=== PATIENT | male | born 1950 | race Caucasian/White ===

== ENCOUNTER → 2016-04-12 | Outpatient (CLI) | payer BC ==
[~2016-04-12] MED LIST: ATORVASTATIN CA20 M1 PO; CELECOXIB200 M1 PO; FLUTICASON0.05 MG/AC NAS; HUMALOG100 UNIT/1 SQ; JANUMET 1000 MG1 TA1 PO; JARDIANCE10 MG PO; PANTOPRAZOLE SO40 MG PO; PREDNISONE10 MG PO
[2016-04-13 08:10] LABS: PROSTATE SPECIFIC AG FREE 0.6 ng/mL
== END | disposition home or self-care (01) ==
LOC: LAB 07:02
PROVIDERS: Urology
DX: R97.20 Elevated prostate specific antigen [PSA] (principal)

== ENCOUNTER → 2016-07-08 | Day surgery (SDC) | payer BC ==
[~2016-07-08] MED LIST changes: +ASPIRIN CHEWABL81 MG PO; +HUMULIN N KW100 U/ML SC; +LEVEMIR FLEX100 U/ML SC; +LIPITOR20 MG PO
--- NOTE | ~2016-07-08 | PROC NOTE ---
[place], [place] PROCEDURE NOTE [id number] UNIT #: [id number] ROOM: DOCTOR: ALBERT ANGELO MD BIRTHDATE: [birth year] DOS: 07/08/2016 PREOPERATIVE DIAGNOSIS: Occipital scalp cyst. POSTOPERATIVE DIAGNOSIS: Occipital scalp cyst. PROCEDURE: Excision of occipital scalp cyst. SURGEON: Albert Angelo MD. STEEPING PRESS TENDER: CARLOS. ANESTHESIA: Local. INDICATIONS: This is a 66-year-old gentleman with a history of symptomatic cyst on the occipital region of his scalp, who is here for the above-mentioned procedure. The procedure and its complications were explained to the patient in detail. Complications that were discussed included but were not limited to, bleeding, infection, and prolonged pain. He agreed to proceed. DESCRIPTION OF PROCEDURE: After identifying the patient, the patient was brought to the operating suite and laid in the right lateral position. After the scalp was shaved around the cyst, it was prepped and draped in the usual sterile fashion and a time-out procedure was called. An elliptical incision was marked and local anesthesia was infiltrated. The mass was removed in its entirety and sent for histopathological diagnosis with the help of a knife. Hemostasis was achieved with the help of electrocautery and the edges of the skin were then approximated with the help of 3-0 Vicryl in a subcuticular interrupted fashion. Dressing was placed. The patient tolerated the procedure well. There were no complications. Dr. Albert Angelo, the attending surgeon, was present throughout the operating case. Albert Angelo MD CM:PROCNOTE:PROCEDURE NOTE [id number] ALBERT ANGEOL MD
[2016-07-08 08:30] VITALS: BP 143/72
[2016-07-08 09:30] VITALS: BP 137/74
== END | disposition home or self-care (01) ==
LOC: SDC 07-05 12:30
DX: L72.0 Epidermal cyst (principal); E11.9 Type 2 diabetes mellitus without complications; E78.00 Pure hypercholesterolemia, unspecified; Z87.891 Personal history of nicotine dependence; Z82.49 Family history of ischemic heart disease and other diseases of the circulatory system

== ENCOUNTER → 2016-07-11 | Outpatient (CLI) | payer BC ==
[2016-07-11 08:04] LABS: HEMOGLOBIN A1c 8.4 % (4.8-5.6)
== END | disposition home or self-care (01) ==
LOC: LAB 07:09
DX: E10.9 Type 1 diabetes mellitus without complications (principal)

== ENCOUNTER → 2016-10-21 | Outpatient (CLI) | payer BC | END | disposition home or self-care (01) | LOC: CARD 10:30 | DX: I08.1 Rheumatic disorders of both mitral and tricuspid valves (principal) ==

== ENCOUNTER → 2016-12-06 | Outpatient (CLI) | payer BC | END | disposition home or self-care (01) | LOC: LAB 07:06 | DX: R97.20 Elevated prostate specific antigen [PSA] (principal) ==

== ENCOUNTER → 2016-12-20 | Outpatient (CLI) | payer BC ==
[2016-12-20 08:24] LABS: ALBUMIN 3.7 gm/dl (3.1-4.5); ALKALINE PHOSPHATASE 59 U/L (45-117); BUN 8 mg/dl (7-24); CHLORIDE 101 mmol/L (98-107); CHOLESTEROL 173 mg/dL (<200); CREATININE 0.74 mg/dL (0.70-1.30); HDL CHOLESTEROL 89 mg/dl (40-60); LDL CHOLESTEROL 65 mg/dL (9-159); POTASSIUM 4.8 mmol/L (3.5-5.1); SGOT/AST 18 IU/L (3-35); SGPT/ALT 20 U/L (12-78); SODIUM 140 mmol/L (136-145); TOTAL PROTEIN 7.1 gm/dL (6.4-8.2); TRIGLYCERIDES 95 mg/dl (<150); VLDL CHOLESTEROL 19 mg/dL (6-40)
== END | disposition home or self-care (01) ==
LOC: LAB 07:08
PROVIDERS: Physician Assistant Medical
DX: E11.65 Type 2 diabetes mellitus with hyperglycemia (principal); E78.00 Pure hypercholesterolemia, unspecified; I10 Essential (primary) hypertension

== ENCOUNTER → 2017-02-12 | Outpatient (CLI) | payer BC | LOC: RAD 08:51 | DX: M47.892 Other spondylosis, cervical region (principal); M48.02 Spinal stenosis, cervical region ==

== ENCOUNTER → 2017-04-30 | Outpatient (CLI) | payer BC ==
[2017-04-30 08:03] LABS: CHLORIDE 105 mmol/L (98-107); SODIUM 142 mmol/L (136-145)
[2017-04-30 08:11] LABS: ALBUMIN 4.2 gm/dl (3.1-4.5); ALKALINE PHOSPHATASE 62 U/L (45-117); BUN 11 mg/dl (7-24); CREATININE 0.93 mg/dL (0.70-1.30); SGOT/AST 16 IU/L (3-35); SGPT/ALT 21 U/L (12-78); TOTAL PROTEIN 7.3 gm/dL (6.4-8.2)
== END ==
LOC: LAB 07:21
PROVIDERS: Physician Assistant Medical
DX: R10.9 Unspecified abdominal pain (principal)

== ENCOUNTER → 2017-06-03 | Outpatient (CLI) | payer BC | END | disposition home or self-care (01) | LOC: LAB 07:05 | DX: R97.20 Elevated prostate specific antigen [PSA] (principal) ==

== ENCOUNTER 2017-08-13 07:20 | Emergency (ER) | payer BC, MEDICARE ==
[~2017-08-13] VITALS: Ht 185.4 cm; Wt 81.6 kg
[2017-08-13 07:20] VITALS: BP 118/70
[~2017-08-13 07:20] MED LIST changes: -HUMULIN N KW100 U/ML SC; +HUMULIN N100 UNIT/2 SQ
[2017-08-13] MEDS ORDERED: PREDNISONE50 MG PO (07:46)
== END 2017-08-13 07:50 | disposition home or self-care (01) ==
LOC: ED 07:20
DX: L23.7 Allergic contact dermatitis due to plants, except food (principal); Z79.4 Long term (current) use of insulin; Z79.82 Long term (current) use of aspirin

== ENCOUNTER → 2017-10-20 | Outpatient (CLI) | payer BC ==
[~2017-10-20] MED LIST changes: +PREDNISONE50 MG PO
== END | disposition home or self-care (01) ==
LOC: LAB 07:15
DX: E11.9 Type 2 diabetes mellitus without complications (principal)

== ENCOUNTER → 2017-10-21 | Outpatient (CLI) | payer BC ==
--- NOTE | ~2017-10-21 | EKG ---
[place], [place] ELECTROCARDIOGRAM REPORT NAME: YOUSIF LOVELACE UNIT #: [id number] ROOM: DOCTOR: OTILIA DRAFT REPORT BIRTHDATE: [birth year] [facility] Test Date: 2017-10-21 Test Time: 08:18:11 Pat Name: YOUSIF LOVELACE Department: Room: Gender: Apartment Leasing Agent: : [id number] Requested By: JULIAN SANFORD Order Number: [id number] Reading MD: Red Bland MD Measurements Intervals Gates Rate: 64 P: 56 AL: 189 QRS: 71 QRSD: 100 T: 49 QT: 423 QTc: 437 Interpretive Statements Sinus rhythm Electronically Signed On 10-21-2017 20:36:07 PDT by Red Bland MD CM:EKGRPT:ELECTROCARDIOGRAM REPORT 7 35 JULIAN BINGHAM DRAFT REPORT JULIAN SANFORD
== END | disposition home or self-care (01) ==
LOC: CARD 07:55
DX: R06.02 Shortness of breath (principal); R07.9 Chest pain, unspecified

== ENCOUNTER → 2018-02-19 | Outpatient (CLI) | payer BC ==
[2018-02-19 08:19] LABS: ALBUMIN 4.2 gm/dl (3.1-4.5); ALKALINE PHOSPHATASE 63 U/L (45-117); BUN 12 mg/dl (7-24); CHLORIDE 103 mmol/L (98-107); CHOLESTEROL 173 mg/dL (<200); CREATININE 0.89 mg/dL (0.70-1.30); HDL CHOLESTEROL 86 mg/dl (40-60); LDL CHOLESTEROL 66 mg/dL (9-159); POTASSIUM 4.3 mmol/L (3.5-5.1); SGOT/AST 23 IU/L (3-35); SGPT/ALT 24 U/L (12-78); SODIUM 139 mmol/L (136-145); TOTAL PROTEIN 7.5 gm/dL (6.4-8.2); TRIGLYCERIDES 104 mg/dl (<150); VLDL CHOLESTEROL 21 mg/dL (6-40)
== END | disposition home or self-care (01) ==
LOC: LAB 07:26
PROVIDERS: Physician Assistant Medical
DX: I10 Essential (primary) hypertension (principal); E10.9 Type 1 diabetes mellitus without complications; E78.00 Pure hypercholesterolemia, unspecified

== ENCOUNTER → 2018-05-22 | Outpatient (CLI) | payer BC | END | disposition home or self-care (01) | LOC: LAB 14:19 | DX: R97.20 Elevated prostate specific antigen [PSA] (principal) ==

== ENCOUNTER → 2018-05-29 | Outpatient (CLI) | payer BC ==
[2018-05-29 07:37] LABS: HEMOGLOBIN 14.7 g/dl (14.0-18.0); MEAN CELL VOLUME 91.9 fl (80.0-94.0); MEAN CORPUSCULAR HGB 31.4 pg (27.0-31.0); MEAN CORPUSCULAR HGB CONC 34.2 g/dl (33.0-37.0); RED BLOOD COUNT 4.68 10*6/uL (4.50-5.90); RED CELL DISTRI WIDTH 13.1 % (0-14.5); WHITE BLOOD COUNT 4.6 10*3/uL (4.8-10.8)
[2018-05-29 08:23] LABS: ALBUMIN 3.7 gm/dl (3.1-4.5); BUN 11 mg/dl (7-24); CHLORIDE 103 mmol/L (98-107); POTASSIUM 5.2 mmol/L (3.5-5.1); SODIUM 139 mmol/L (136-145)
[2018-05-29 08:34] LABS: ALKALINE PHOSPHATASE 72 U/L (45-117); CHOLESTEROL 169 mg/dL (<200); CPK 78 U/L (39-308); CREATININE 0.81 mg/dL (0.70-1.30); HDL CHOLESTEROL 84 mg/dl (40-60); LDL CHOLESTEROL 68 mg/dL (9-159); SGOT/AST 15 IU/L (3-35); SGPT/ALT 21 U/L (12-78); TOTAL PROTEIN 7.1 gm/dL (6.4-8.2); TRIGLYCERIDES 87 mg/dl (<150); VLDL CHOLESTEROL 17 mg/dL (6-40)
== END | disposition home or self-care (01) ==
LOC: LAB 07:06
PROVIDERS: Family Medicine
DX: E55.9 Vitamin D deficiency, unspecified (principal); K21.9 Gastro-esophageal reflux disease without esophagitis; E11.9 Type 2 diabetes mellitus without complications; E78.00 Pure hypercholesterolemia, unspecified; R53.83 Other fatigue

== ENCOUNTER → 2018-11-11 | Outpatient (CLI) | payer BC ==
[2018-11-11 08:07] LABS: ALBUMIN 3.6 gm/dl (3.1-4.5); BUN 6 mg/dl (7-24); CHLORIDE 106 mmol/L (98-107); CHOLESTEROL 183 mg/dL (<200); CREATININE 0.75 mg/dL (0.70-1.30); POTASSIUM 3.6 mmol/L (3.5-5.1); SGOT/AST 17 IU/L (3-35); SGPT/ALT 20 U/L (12-78); SODIUM 142 mmol/L (136-145); TRIGLYCERIDES 157 mg/dl (<150); VLDL CHOLESTEROL 31 mg/dL (6-40)
[2018-11-11 08:10] LABS: ALKALINE PHOSPHATASE 77 U/L (45-117); HDL CHOLESTEROL 89 mg/dl (40-60); LDL CHOLESTEROL 63 mg/dL (9-159); TOTAL PROTEIN 6.7 gm/dL (6.4-8.2)
== END | disposition home or self-care (01) ==
LOC: LAB 07:03
PROVIDERS: Physician Assistant Medical
DX: E78.00 Pure hypercholesterolemia, unspecified (principal); E10.65 Type 1 diabetes mellitus with hyperglycemia

== ENCOUNTER → 2019-01-25 | Outpatient (CLI) | payer BC ==
[2019-01-25 07:50] LABS: BUN 14 mg/dl (7-24); CHLORIDE 106 mmol/L (98-107); CREATININE 0.92 mg/dL (0.70-1.30); POTASSIUM 4.3 mmol/L (3.5-5.1); SGOT/AST 20 IU/L (3-35); SGPT/ALT 24 U/L (12-78); SODIUM 140 mmol/L (136-145)
[2019-01-25 08:00] LABS: ALBUMIN 3.8 gm/dl (3.1-4.5); ALKALINE PHOSPHATASE 85 U/L (45-117)
== END | disposition home or self-care (01) ==
LOC: LAB 07:13
PROVIDERS: Physician Assistant Medical
DX: E78.5 Hyperlipidemia, unspecified (principal); I10 Essential (primary) hypertension; E10.9 Type 1 diabetes mellitus without complications; Z79.4 Long term (current) use of insulin

== ENCOUNTER → 2019-05-06 | Outpatient (CLI) | payer BC ==
[2019-05-06 09:01] LABS: ALBUMIN 3.8 gm/dl (3.1-4.5); ALKALINE PHOSPHATASE 79 U/L (45-117); BUN 8 mg/dl (7-24); CHLORIDE 105 mmol/L (98-107); CHOLESTEROL 202 mg/dL (<200); CREATININE 0.93 mg/dL (0.70-1.30); HDL CHOLESTEROL 79 mg/dl (40-60); LDL CHOLESTEROL 91 mg/dL (9-159); POTASSIUM 4.4 mmol/L (3.5-5.1); SGOT/AST 14 IU/L (3-35); SGPT/ALT 22 U/L (12-78); SODIUM 141 mmol/L (136-145); TOTAL PROTEIN 6.9 gm/dL (6.4-8.2); TRIGLYCERIDES 158 mg/dl (<150); VLDL CHOLESTEROL 32 mg/dL (6-40)
== END ==
LOC: LAB 08:01
PROVIDERS: Physician Assistant Medical
DX: I10 Essential (primary) hypertension (principal); E10.9 Type 1 diabetes mellitus without complications; E78.5 Hyperlipidemia, unspecified; Z79.4 Long term (current) use of insulin

== ENCOUNTER → 2019-08-27 | Outpatient (CLI) | payer BC ==
[~2019-08-27] MED LIST changes: +PREDNISONE20 M1 PO; +VISTARIL25 MG PO
[2019-08-27 10:08] LABS: ALBUMIN 3.8 gm/dl (3.1-4.5); ALKALINE PHOSPHATASE 76 U/L (45-117); BUN 9 mg/dl (7-24); CHLORIDE 105 mmol/L (98-107); CHOLESTEROL 206 mg/dL (<200); CREATININE 0.86 mg/dL (0.70-1.30); HDL CHOLESTEROL 73 mg/dl (40-60); LDL CHOLESTEROL 101 mg/dL (9-159); POTASSIUM 4.2 mmol/L (3.5-5.1); SGOT/AST 18 IU/L (3-35); SGPT/ALT 30 U/L (12-78); SODIUM 137 mmol/L (136-145); TOTAL PROTEIN 7.2 gm/dL (6.4-8.2); TRIGLYCERIDES 161 mg/dl (<150); VLDL CHOLESTEROL 32 mg/dL (6-40)
== END | disposition home or self-care (01) ==
LOC: LAB 09:10
PROVIDERS: Physician Assistant Medical
DX: Z12.5 Encounter for screening for malignant neoplasm of prostate (principal); I10 Essential (primary) hypertension; E78.5 Hyperlipidemia, unspecified; E10.9 Type 1 diabetes mellitus without complications; Z79.4 Long term (current) use of insulin

== ENCOUNTER 2019-09-03 19:36 | Emergency (ER) | payer BC ==
[~2019-09-03 19:36] MED LIST changes: -PREDNISONE20 M1 PO; -VISTARIL25 MG PO
[2019-09-03 19:50] VITALS: BP 112/63
[2019-09-03] MEDS ORDERED: VISTARIL25 MG PO (20:48)
[2019-09-03] MEDS ORDERED: PREDNISONE20 M1 PO (20:48)
== END 2019-09-03 21:00 | disposition home or self-care (01) ==
LOC: ED 19:36
DX: L25.9 Unspecified contact dermatitis, unspecified cause (principal); E78.00 Pure hypercholesterolemia, unspecified; E78.5 Hyperlipidemia, unspecified; E11.9 Type 2 diabetes mellitus without complications; Z79.899 Other long term (current) drug therapy; Z79.4 Long term (current) use of insulin; Z79.82 Long term (current) use of aspirin

== ENCOUNTER → 2019-09-14 | Outpatient (CLI) | payer BC ==
[~2019-09-14] MED LIST changes: +PREDNISONE20 M1 PO; +VISTARIL25 MG PO
[2019-09-15 17:09] LABS: PROSTATE SPECIFIC AG FREE 0.65 ng/mL; PROSTATE SPECIFIC AG, SERUM 4.9 ng/mL (0.0-4.0)
== END | disposition home or self-care (01) ==
LOC: LAB 09:59
PROVIDERS: Urology
DX: R97.20 Elevated prostate specific antigen [PSA] (principal)

== ENCOUNTER → 2019-10-21 | Outpatient (CLI) | payer MEDICARE, BC | END | disposition home or self-care (01) | LOC: COVID19 07:22 | DX: U07.1 COVID-19 (principal) ==

== ENCOUNTER → 2019-12-03 | Outpatient (CLI) | payer MEDICARE | END | disposition home or self-care (01) | LOC: RAD 07:46 | PROVIDERS: ATTEND Family Medicine | DX: K21.9 Gastro-esophageal reflux disease without esophagitis (principal); R07.9 Chest pain, unspecified ==

== ENCOUNTER → 2019-12-15 | Outpatient (CLI) | payer MEDICARE ==
[2019-12-15 10:00] LABS: ALBUMIN 3.7 gm/dl (3.1-4.5); BUN 10 mg/dl (7-24); CHLORIDE 105 mmol/L (98-107); POTASSIUM 4.3 mmol/L (3.5-5.1); SODIUM 139 mmol/L (136-145)
[2019-12-15 10:04] LABS: ALKALINE PHOSPHATASE 76 U/L (45-117); CHOLESTEROL 198 mg/dL (<200); CREATININE 0.83 mg/dL (0.70-1.30); HDL CHOLESTEROL 80 mg/dl (40-60); LDL CHOLESTEROL 80 mg/dL (9-159); SGOT/AST 14 IU/L (3-35); SGPT/ALT 25 U/L (12-78); TRIGLYCERIDES 190 mg/dl (<150); VLDL CHOLESTEROL 38 mg/dL (6-40)
== END | disposition home or self-care (01) ==
LOC: LAB 09:01
PROVIDERS: ATTEND Physician Assistant Medical
DX: E10.9 Type 1 diabetes mellitus without complications (principal); E78.5 Hyperlipidemia, unspecified; Z79.4 Long term (current) use of insulin

== ENCOUNTER → 2020-02-02 | Outpatient (CLI) | payer MEDICARE | END | disposition home or self-care (01) | LOC: LAB 11:02 | PROVIDERS: ATTEND Urology | DX: R97.20 Elevated prostate specific antigen [PSA] (principal) ==

== ENCOUNTER → 2020-03-29 | Outpatient (CLI) | payer MEDICARE | END | disposition home or self-care (01) | LOC: COVID19 10:22 | PROVIDERS: ATTEND Social Worker Clinical | DX: Z20.822 Contact with and (suspected) exposure to COVID-19 (principal) ==

== ENCOUNTER → 2020-04-08 | Outpatient (CLI) | payer MEDICARE ==
[2020-04-08 09:25] LABS: ALBUMIN 3.8 gm/dl (3.1-4.5); ALKALINE PHOSPHATASE 81 U/L (45-117); BUN 7 mg/dl (7-24); CHLORIDE 104 mmol/L (98-107); CHOLESTEROL 169 mg/dL (<200); CREATININE 0.81 mg/dL (0.70-1.30); HDL CHOLESTEROL 81 mg/dl (40-60); LDL CHOLESTEROL 67 mg/dL (9-159); POTASSIUM 4.4 mmol/L (3.5-5.1); SGOT/AST 18 IU/L (3-35); SGPT/ALT 25 U/L (12-78); SODIUM 138 mmol/L (136-145); TOTAL PROTEIN 7.2 gm/dL (6.4-8.2); TRIGLYCERIDES 104 mg/dl (<150); VLDL CHOLESTEROL 21 mg/dL (6-40)
== END | disposition home or self-care (01) ==
LOC: LAB 08:20
PROVIDERS: ATTEND Physician Assistant Medical
DX: I10 Essential (primary) hypertension (principal); E78.5 Hyperlipidemia, unspecified; E10.9 Type 1 diabetes mellitus without complications; Z79.4 Long term (current) use of insulin

== ENCOUNTER → 2020-05-05 | Outpatient (CLI) | payer MEDICARE | END | disposition home or self-care (01) | LOC: LAB 10:39 | PROVIDERS: ATTEND Urology | DX: R97.20 Elevated prostate specific antigen [PSA] (principal) ==

== ENCOUNTER → 2020-05-29 | Outpatient (CLI) | payer MEDICARE ==
[2020-05-29 10:13] LABS: ALBUMIN 3.7 gm/dl (3.1-4.5); BUN 9 mg/dl (7-24); CHLORIDE 106 mmol/L (98-107); CREATININE 0.92 mg/dL (0.70-1.30); POTASSIUM 5.3 mmol/L (3.5-5.1); SGOT/AST 15 IU/L (3-35); SGPT/ALT 23 U/L (12-78); SODIUM 141 mmol/L (136-145); TOTAL PROTEIN 7.3 gm/dL (6.4-8.2)
[2020-05-29 10:14] LABS: ALKALINE PHOSPHATASE 74 U/L (45-117)
== END | disposition home or self-care (01) ==
LOC: LAB 08:52
PROVIDERS: ATTEND Orthopaedic Surgery
DX: Z79.899 Other long term (current) drug therapy (principal)

== ENCOUNTER → 2020-07-25 | Outpatient (CLI) | payer MEDICARE ==
[2020-07-25 10:09] LABS: ALBUMIN 3.8 gm/dl (3.1-4.5); ALKALINE PHOSPHATASE 68 U/L (45-117); BUN 10 mg/dl (7-24); CHLORIDE 105 mmol/L (98-107); CHOLESTEROL 159 mg/dL (<200); CREATININE 0.93 mg/dL (0.70-1.30); LDL CHOLESTEROL 60 mg/dL (9-159); POTASSIUM 4.4 mmol/L (3.5-5.1); SGOT/AST 16 IU/L (3-35); SGPT/ALT 24 U/L (12-78); SODIUM 139 mmol/L (136-145); TOTAL PROTEIN 6.9 gm/dL (6.4-8.2); TRIGLYCERIDES 121 mg/dl (<150)
== END | disposition home or self-care (01) ==
LOC: LAB 09:23
PROVIDERS: ATTEND Physician Assistant Medical
DX: E10.9 Type 1 diabetes mellitus without complications (principal); E78.5 Hyperlipidemia, unspecified; I10 Essential (primary) hypertension; Z79.4 Long term (current) use of insulin

== ENCOUNTER → 2020-07-31 | Outpatient (CLI) | payer MEDICARE | END | disposition home or self-care (01) | LOC: RAD 11:28 | PROVIDERS: ATTEND Family Medicine | DX: R06.02 Shortness of breath (principal) ==

== ENCOUNTER → 2020-08-08 | Outpatient (CLI) | payer MEDICARE | END | disposition home or self-care (01) | LOC: LAB 11:35 | PROVIDERS: ATTEND Urology | DX: R97.20 Elevated prostate specific antigen [PSA] (principal) ==

== ENCOUNTER → 2020-08-10 | Outpatient (CLI) | payer MEDICARE | END | disposition home or self-care (01) | LOC: CT 00:10 | PROVIDERS: ATTEND Family Medicine | DX: R91.1 Solitary pulmonary nodule (principal) ==

== ENCOUNTER 2020-10-17 12:35 | Emergency (ER) | payer MEDICARE ==
[~2020-10-17] VITALS: Ht 185.4 cm; Wt 88.5 kg
[2020-10-17 12:43] VITALS: BP 127/63
[2020-10-17] MEDS ORDERED: NYSTATIN15 GM T (13:09)
== END 2020-10-17 13:12 | disposition home or self-care (01) ==
LOC: ED 12:35
DX: L30.9 Dermatitis, unspecified (principal); Z79.899 Other long term (current) drug therapy; Z79.4 Long term (current) use of insulin; Z79.82 Long term (current) use of aspirin; Z98.890 Other specified postprocedural states

== ENCOUNTER → 2020-10-30 | Outpatient (CLI) | payer MEDICARE ==
[~2020-10-30] MED LIST changes: +NYSTATIN15 GM T
[2020-10-30 10:48] LABS: ALBUMIN 3.9 gm/dl (3.1-4.5); ALKALINE PHOSPHATASE 59 U/L (45-117); BUN 13 mg/dl (7-24); CHLORIDE 104 mmol/L (98-107); CREATININE 0.79 mg/dL (0.70-1.30); POTASSIUM 4.4 mmol/L (3.5-5.1); SGOT/AST 13 IU/L (3-35); SGPT/ALT 23 U/L (12-78); SODIUM 137 mmol/L (136-145); TOTAL PROTEIN 7.2 gm/dL (6.4-8.2)
== END | disposition home or self-care (01) ==
LOC: LAB 10:01
PROVIDERS: ATTEND Orthopaedic Surgery
DX: Z79.01 Long term (current) use of anticoagulants (principal)

== ENCOUNTER → 2020-11-28 | Outpatient (CLI) | payer MEDICARE ==
[2020-11-28 11:09] LABS: ALBUMIN 3.9 gm/dl (3.1-4.5); ALKALINE PHOSPHATASE 62 U/L (45-117); BUN 12 mg/dl (7-24); CHLORIDE 105 mmol/L (98-107); CHOLESTEROL 207 mg/dL (<200); CREATININE 0.83 mg/dL (0.70-1.30); LDL CHOLESTEROL 112 mg/dL (9-159); POTASSIUM 4.7 mmol/L (3.5-5.1); SGOT/AST 21 IU/L (3-35); SGPT/ALT 40 U/L (12-78); SODIUM 140 mmol/L (136-145); TOTAL PROTEIN 7.5 gm/dL (6.4-8.2); TRIGLYCERIDES 131 mg/dl (<150)
== END | disposition home or self-care (01) ==
LOC: LAB 10:28
PROVIDERS: ATTEND Physician Assistant Medical
DX: I10 Essential (primary) hypertension (principal); E16.2 Hypoglycemia, unspecified; E55.9 Vitamin D deficiency, unspecified; E78.5 Hyperlipidemia, unspecified; Z79.4 Long term (current) use of insulin

== ENCOUNTER → 2021-01-23 | Outpatient (CLI) | payer MEDICARE | END | disposition home or self-care (01) | LOC: LAB 09:18 | PROVIDERS: ATTEND Urology | DX: R97.20 Elevated prostate specific antigen [PSA] (principal) ==

== ENCOUNTER → 2021-04-04 | Outpatient (CLI) | payer MEDICARE ==
[2021-04-04 08:56] LABS: ALBUMIN 3.9 gm/dl (3.1-4.5); ALKALINE PHOSPHATASE 56 U/L (45-117); BUN 16 mg/dl (7-24); CHLORIDE 104 mmol/L (98-107); CHOLESTEROL 194 mg/dL (<200); CREATININE 1.21 mg/dL (0.70-1.30); LDL CHOLESTEROL 81 mg/dL (9-159); POTASSIUM 4.5 mmol/L (3.5-5.1); SGOT/AST 21 IU/L (3-35); SGPT/ALT 35 U/L (12-78); SODIUM 138 mmol/L (136-145); TOTAL PROTEIN 7.1 gm/dL (6.4-8.2); TRIGLYCERIDES 106 mg/dl (<150)
== END | disposition home or self-care (01) ==
LOC: LAB 07:56
PROVIDERS: ATTEND Physician Assistant Medical
DX: E10.9 Type 1 diabetes mellitus without complications (principal); E78.5 Hyperlipidemia, unspecified; I10 Essential (primary) hypertension; Z79.4 Long term (current) use of insulin

== ENCOUNTER → 2021-06-29 | Outpatient (CLI) | payer MEDICARE ==
[2021-06-29 09:56] LABS: ALKALINE PHOSPHATASE 64 U/L (45-117); BUN 11 mg/dl (7-24); CHLORIDE 97 mmol/L (98-107); CREATININE 0.83 mg/dL (0.70-1.30); POTASSIUM 4.4 mmol/L (3.5-5.1); SGOT/AST 18 IU/L (3-35); SGPT/ALT 25 U/L (12-78); SODIUM 133 mmol/L (136-145); TOTAL PROTEIN 6.8 gm/dL (6.4-8.2)
== END | disposition home or self-care (01) ==
LOC: LAB 08:56
PROVIDERS: ATTEND Orthopaedic Surgery
DX: R53.83 Other fatigue (principal); Z79.1 Long term (current) use of non-steroidal anti-inflammatories (NSAID)

== ENCOUNTER → 2021-08-03 | Outpatient (CLI) | payer MEDICARE ==
[2021-08-03 10:14] LABS: ALKALINE PHOSPHATASE 78 U/L (45-117); BUN 8 mg/dl (7-24); CHLORIDE 103 mmol/L (98-107); CHOLESTEROL 139 mg/dL (<200); LDL CHOLESTEROL 57 mg/dL (9-159); POTASSIUM 4.9 mmol/L (3.5-5.1); SGOT/AST 19 IU/L (3-35); SGPT/ALT 22 U/L (12-78); SODIUM 137 mmol/L (136-145); TOTAL PROTEIN 6.8 gm/dL (6.4-8.2); TRIGLYCERIDES 92 mg/dl (<150)
== END | disposition home or self-care (01) ==
LOC: LAB 09:08
PROVIDERS: Physician Assistant Medical; ATTEND Urology
DX: I10 Essential (primary) hypertension (principal); E16.2 Hypoglycemia, unspecified; R97.20 Elevated prostate specific antigen [PSA]; E10.9 Type 1 diabetes mellitus without complications; E78.5 Hyperlipidemia, unspecified

== ENCOUNTER → 2021-12-21 | Outpatient (CLI) | payer MEDICARE ==
[2021-12-21 10:11] LABS: BUN 10 mg/dl (7-24); CHLORIDE 106 mmol/L (98-107); CHOLESTEROL 186 mg/dL (<200); CREATININE 0.85 mg/dL (0.70-1.30); POTASSIUM 4.9 mmol/L (3.5-5.1); SGOT/AST 20 IU/L (3-35); SODIUM 141 mmol/L (136-145); TRIGLYCERIDES 102 mg/dl (<150)
[2021-12-21 10:17] LABS: ALKALINE PHOSPHATASE 62 U/L (45-117); LDL CHOLESTEROL 72 mg/dL (9-159); SGPT/ALT 26 U/L (12-78); TOTAL PROTEIN 7.2 gm/dL (6.4-8.2)
[2021-12-22 10:07] LABS: CREATININE,URINE 110.9 mg/dL (Not Estab.)
== END | disposition home or self-care (01) ==
LOC: LAB 09:16
PROVIDERS: ATTEND Physician Assistant Medical
DX: E10.9 Type 1 diabetes mellitus without complications (principal); E78.5 Hyperlipidemia, unspecified; I10 Essential (primary) hypertension; Z79.4 Long term (current) use of insulin; E16.2 Hypoglycemia, unspecified

== ENCOUNTER 2022-01-30 17:36 | Emergency (ER) | payer MEDICARE ==
[2022-01-30] MEDS ORDERED: TOUJEO MAX300 UNIT/1 SQ (21:23)
== END 2022-01-30 18:31 | disposition left against medical advice (07) ==
LOC: ED 17:36
DX: Z53.21 Procedure and treatment not carried out due to patient leaving prior to being seen by health care provider (principal)

== ENCOUNTER 2022-01-30 20:55 | Emergency (ER) | payer MEDICARE ==
[~2022-01-30] VITALS: Ht 185.4 cm; Wt 81.6 kg
[2022-01-30 21:22] VITALS: BP 121/72
[2022-01-30] MEDS ORDERED: TOUJEO MAX300 UNIT/1 SQ (21:23)
== END 2022-01-30 22:09 | disposition home or self-care (01) ==
LOC: ED 20:55
DX: S61.213A Laceration without foreign body of left middle finger without damage to nail, initial encounter (principal); W45.8XXA Other foreign body or object entering through skin, initial encounter; Y93.89 Activity, other specified; Y92.89 Other specified places as the place of occurrence of the external cause; Y99.8 Other external cause status

== ENCOUNTER → 2022-02-27 | Outpatient (CLI) | payer MEDICARE ==
[~2022-02-27] MED LIST changes: +TOUJEO MAX300 UNIT/1 SQ
== END | disposition home or self-care (01) ==
LOC: LAB 11:49
PROVIDERS: ATTEND Urology
DX: C61 Malignant neoplasm of prostate (principal)

== ENCOUNTER → 2022-03-11 | Outpatient (CLI) | payer MEDICARE | END | disposition home or self-care (01) | LOC: RESCLI 03:54 | PROVIDERS: ATTEND Internal Medicine | DX: K21.9 Gastro-esophageal reflux disease without esophagitis (principal); E11.9 Type 2 diabetes mellitus without complications; I34.1 Nonrheumatic mitral (valve) prolapse; N40.0 Benign prostatic hyperplasia without lower urinary tract symptoms; E78.5 Hyperlipidemia, unspecified; I10 Essential (primary) hypertension; E63.9 Nutritional deficiency, unspecified; M19.90 Unspecified osteoarthritis, unspecified site; Z98.890 Other specified postprocedural states; Z72.89 Other problems related to lifestyle; Z79.84 Long term (current) use of oral hypoglycemic drugs; Z79.899 Other long term (current) drug therapy ==

== ENCOUNTER → 2022-05-22 | Outpatient (CLI) | payer MEDICARE ==
[2022-05-22 08:05] LABS: ALKALINE PHOSPHATASE 62 U/L (46-116); BUN 7 mg/dl (9-23); CHLORIDE 102 mmol/L (98-107); CHOLESTEROL 171 mg/dL (<200); LDL CHOLESTEROL 66 mg/dL (9-159); POTASSIUM 4.7 mmol/L (3.4-5.1); SGPT/ALT 27 U/L (10-49); TOTAL PROTEIN 7.2 gm/dL (6.0-8.0); TRIGLYCERIDES 90 mg/dl (<150)
== END | disposition home or self-care (01) ==
LOC: LAB 07:28
PROVIDERS: ATTEND Physician Assistant Medical
DX: I10 Essential (primary) hypertension (principal); E78.5 Hyperlipidemia, unspecified; E10.9 Type 1 diabetes mellitus without complications; E16.2 Hypoglycemia, unspecified; Z79.4 Long term (current) use of insulin

== ENCOUNTER → 2022-09-03 | Outpatient (CLI) | payer MEDICARE | END | disposition home or self-care (01) | LOC: LAB 11:11 | PROVIDERS: ATTEND Urology | DX: C61 Malignant neoplasm of prostate (principal) ==

== ENCOUNTER → 2022-09-11 | Outpatient (CLI) | payer MEDICARE ==
[2022-09-11 14:18] LABS: BASO % 0.4 % (0.0-1.0); EOS # 0.2 10*3/uL (0.0-0.4); EOS % 3.4 % (1.0-4.0); HEMATOCRIT 42.4 % (42.0-52.0); LYMPH # 0.8 10*3/uL (1.3-4.4); LYMPH % 13.7 % (27.0-41.0); MEAN CELL VOLUME 94.4 fl (80.0-94.0); MEAN CORPUSCULAR HGB 32.1 pg (27.0-31.0); MEAN PLATELET VOLUME 8.9 fl (9.6-12.3); MONO # 0.4 10*3/uL (0.1-1.0); MONO % 7.9 % (3.0-9.0); NEUT # 4.1 10*3/uL (2.3-7.9); NEUT % 74.4 % (47.0-73.0); PLATELET COUNT AUTOMATED 158 10*3/uL (130-400); RED BLOOD COUNT 4.49 10*6/uL (4.50-5.90); RED CELL DISTRI WIDTH 13.8 % (0-14.5); WHITE BLOOD COUNT 5.5 10*3/uL (4.8-10.8)
[2022-09-12 08:10] LABS: HBSAG Negative (Negative); HEP B CORE AB, IGM Negative (Negative); HEPATITIS C ANTIBODY Non Reactive (Non Reactive)
[2022-09-12 13:07] LABS: CCP ANTIBODIES IGG/IGA 5 units (0-19)
[2022-09-12 14:08] LABS: ANTI-RNP ANTIBODIES <0.2 AI (0.0-0.9)
[2022-09-13 12:08] LABS: PTT-LA 34.5 sec (0.0-43.5)
[2022-09-13 13:07] LABS: LUPUS REFLEX INTERPRETATION Comment: (.)
[2022-09-18 18:07] LABS: HLA-B27 ANTIGEN Negative (.)
== END | disposition home or self-care (01) ==
LOC: LAB 13:51
PROVIDERS: ATTEND Orthopaedic Surgery
DX: M17.11 Unilateral primary osteoarthritis, right knee (principal); R53.83 Other fatigue

== ENCOUNTER → 2022-10-29 | Outpatient (CLI) | payer MEDICARE ==
[2022-10-29 08:20] LABS: URINE CREATININE RANDOM 147.03 mg/dL
[2022-10-29 08:41] LABS: ALKALINE PHOSPHATASE 64 U/L (46-116); BUN 8 mg/dl (9-23); CHLORIDE 102 mmol/L (98-107); CHOLESTEROL 150 mg/dL (<200); LDL CHOLESTEROL 66 mg/dL (9-159); POTASSIUM 4.6 mmol/L (3.4-5.1); SGPT/ALT 16 U/L (10-49); TOTAL PROTEIN 6.5 gm/dL (6.0-8.0); TRIGLYCERIDES 84 mg/dl (<150)
== END | disposition home or self-care (01) ==
LOC: LAB 07:43
PROVIDERS: ATTEND Physician Assistant Medical
DX: E10.9 Type 1 diabetes mellitus without complications (principal); E78.5 Hyperlipidemia, unspecified; I10 Essential (primary) hypertension; Z79.4 Long term (current) use of insulin

== ENCOUNTER → 2023-01-29 | Outpatient (CLI) | payer MEDICARE | LOC: US 11:28 | PROVIDERS: ATTEND Physician Assistant | DX: I65.23 Occlusion and stenosis of bilateral carotid arteries (principal); E11.9 Type 2 diabetes mellitus without complications ==

== ENCOUNTER → 2023-02-03 | Outpatient (CLI) | payer MEDICARE | END | disposition home or self-care (01) | LOC: NM 00:15 | PROVIDERS: ATTEND Physician Assistant | DX: K21.9 Gastro-esophageal reflux disease without esophagitis (principal); R11.0 Nausea ==

== ENCOUNTER → 2023-02-25 | Outpatient (CLI) | payer MEDICARE | END | disposition home or self-care (01) | LOC: LAB 13:46 | PROVIDERS: ATTEND Urology | DX: C61 Malignant neoplasm of prostate (principal) ==

== ENCOUNTER → 2023-03-11 | Outpatient (CLI) | payer MEDICARE ==
[2023-03-11 10:13] LABS: ALKALINE PHOSPHATASE 64 U/L (46-116); BUN 8 mg/dl (9-23); CHLORIDE 102 mmol/L (98-107); CHOLESTEROL 186 mg/dL (<200); LDL CHOLESTEROL 89 mg/dL (9-159); POTASSIUM 4.3 mmol/L (3.4-5.1); SGPT/ALT 17 U/L (5-49); TOTAL PROTEIN 6.9 gm/dL (6.0-8.0); TRIGLYCERIDES 105 mg/dl (<150)
== END | disposition home or self-care (01) ==
LOC: LAB 08:58
PROVIDERS: ATTEND Physician Assistant Medical
DX: I10 Essential (primary) hypertension (principal); E10.9 Type 1 diabetes mellitus without complications; E78.5 Hyperlipidemia, unspecified; E16.2 Hypoglycemia, unspecified; Z79.4 Long term (current) use of insulin

== ENCOUNTER → 2023-04-14 | Outpatient (CLI) | payer MEDICARE | END | disposition home or self-care (01) | LOC: RAD 14:39 → LAB 14:39 | PROVIDERS: ATTEND Orthopaedic Surgery | DX: Z01.818 Encounter for other preprocedural examination (principal); M17.11 Unilateral primary osteoarthritis, right knee ==

== ENCOUNTER 2023-05-22 15:26 | Emergency (ER) | payer MEDICARE ==
[~2023-05-22] VITALS: Ht 182.8 cm; Wt 86.2 kg
[2023-05-22 15:51] LABS: BASO % 0.3 % (0.0-1.0); EOS # 0.1 10*3/uL (0.0-0.4); HEMATOCRIT 37.4 % (42.0-52.0); LYMPH % 14.9 % (27.0-41.0); MEAN CELL VOLUME 92.3 fl (80.0-94.0); MEAN CORPUSCULAR HGB 29.4 pg (27.0-31.0); MEAN CORPUSCULAR HGB CONC 31.8 g/dl (33.0-37.0); MEAN PLATELET VOLUME 8.1 fl (9.6-12.3); MONO # 0.6 10*3/uL (0.1-1.0); MONO % 8.3 % (3.0-9.0); NEUT # 5.1 10*3/uL (2.3-7.9); NEUT % 74.4 % (47.0-73.0); PLATELET COUNT AUTOMATED 280 10*3/uL (130-400); RED BLOOD COUNT 4.05 10*6/uL (4.50-5.90); RED CELL DISTRI WIDTH 13.4 % (0-14.5); WHITE BLOOD COUNT 6.9 10*3/uL (4.8-10.8)
[2023-05-22 16:16] LABS: ALKALINE PHOSPHATASE 70 U/L (46-116); BUN 8 mg/dl (9-23); CHLORIDE 99 mmol/L (98-107); LIPASE 33 U/L (12-53); SGPT/ALT 12 U/L (5-49); TOTAL PROTEIN 6.5 gm/dL (6.0-8.0)
[2023-05-22 17:08] VITALS: BP 128/68
== END 2023-05-22 18:26 | disposition home or self-care (01) ==
LOC: ED 15:26
PROVIDERS: Emergency Medicine
DX: R07.89 Other chest pain (principal); E11.9 Type 2 diabetes mellitus without complications; Z79.82 Long term (current) use of aspirin; Z96.651 Presence of right artificial knee joint; Z79.899 Other long term (current) drug therapy; Z79.4 Long term (current) use of insulin; Z98.890 Other specified postprocedural states

== ENCOUNTER → 2023-06-24 | Outpatient (CLI) | payer MEDICARE | END | disposition home or self-care (01) | LOC: RESCLI 02:56 | PROVIDERS: ATTEND Internal Medicine | DX: E63.9 Nutritional deficiency, unspecified (principal); M19.90 Unspecified osteoarthritis, unspecified site; E11.9 Type 2 diabetes mellitus without complications; E78.5 Hyperlipidemia, unspecified; K21.9 Gastro-esophageal reflux disease without esophagitis; N40.0 Benign prostatic hyperplasia without lower urinary tract symptoms; G47.00 Insomnia, unspecified; Z79.82 Long term (current) use of aspirin; Z79.899 Other long term (current) drug therapy; Z98.890 Other specified postprocedural states ==

== ENCOUNTER → 2023-07-28 | Outpatient (CLI) | payer MEDICARE ==
[2023-07-28 09:35] LABS: ALKALINE PHOSPHATASE 85 U/L (46-116); BUN 10 mg/dl (9-23); CHLORIDE 98 mmol/L (98-107); CHOLESTEROL 167 mg/dL (<200); LDL CHOLESTEROL 52 mg/dL (9-159); POTASSIUM 4.6 mmol/L (3.4-5.1); SGPT/ALT 18 U/L (5-49); TOTAL PROTEIN 7.2 gm/dL (6.0-8.0); TRIGLYCERIDES 118 mg/dl (<150)
== END | disposition home or self-care (01) ==
LOC: LAB 08:49
PROVIDERS: ATTEND Physician Assistant Medical
DX: I10 Essential (primary) hypertension (principal); E10.9 Type 1 diabetes mellitus without complications; E78.5 Hyperlipidemia, unspecified; Z79.4 Long term (current) use of insulin

== ENCOUNTER → 2023-08-29 | Outpatient (CLI) | payer MEDICARE | END | disposition home or self-care (01) | LOC: LAB 11:24 | PROVIDERS: ATTEND Urology | DX: C61 Malignant neoplasm of prostate (principal) ==

== ENCOUNTER → 2023-11-11 | Outpatient (CLI) | payer MEDICARE ==
[2023-11-11 16:48] LABS: BASO % 0.3 % (0.0-1.0); EOS # 0.2 10*3/uL (0.0-0.4); EOS % 2.4 % (1.0-4.0); HEMATOCRIT 42.3 % (42.0-52.0); LYMPH # 0.9 10*3/uL (1.3-4.4); LYMPH % 13.3 % (27.0-41.0); MEAN CELL VOLUME 88.5 fl (80.0-94.0); MEAN CORPUSCULAR HGB 28.7 pg (27.0-31.0); MEAN CORPUSCULAR HGB CONC 32.4 g/dl (33.0-37.0); MEAN PLATELET VOLUME 8.3 fl (9.6-12.3); MONO # 0.7 10*3/uL (0.1-1.0); MONO % 9.6 % (3.0-9.0); NEUT # 5.2 10*3/uL (2.3-7.9); NEUT % 74.1 % (47.0-73.0); PLATELET COUNT AUTOMATED 213 10*3/uL (130-400); RED BLOOD COUNT 4.78 10*6/uL (4.50-5.90); RED CELL DISTRI WIDTH 14.6 % (0-14.5)
[2023-11-11 16:52] LABS: BILIRUBIN Negative (Negative); BLOOD Negative (Negative); CLARITY Clear (Clear); COLOR Dark Yellow (Yellow); GLUCOSE 2+ (Negative); KETONE Trace (Negative); LEUKO ESTERASE Negative (Negative); NITRITE Negative (Negative); PH 5.5 (4.5-8.0); SPECIFIC GRAVITY 1.025 (1.001-1.030)
[2023-11-11 17:03] LABS: ACT PARTIAL THROMBO TIME 25.4 SECONDS (20.0-32.1)
[2023-11-11 17:11] LABS: ALKALINE PHOSPHATASE 73 U/L (46-116); BUN 17 mg/dl (9-23); CHLORIDE 100 mmol/L (98-107); POTASSIUM 4.5 mmol/L (3.4-5.1); SGPT/ALT 13 U/L (5-49); TOTAL PROTEIN 7.4 gm/dL (6.0-8.0)
[2023-11-11 17:40] LABS: MUCOUS TRACE; RBC 0-2 rbc/hpf (0-2)
== END | disposition home or self-care (01) ==
LOC: LAB 15:45
PROVIDERS: ATTEND Family Medicine
DX: Z01.818 Encounter for other preprocedural examination (principal)

== ENCOUNTER → 2023-11-18 | Outpatient (CLI) | payer MEDICARE ==
[2023-11-18 10:57] LABS: URINE CREATININE RANDOM 155.54 mg/dL
[2023-11-18 11:26] LABS: ALKALINE PHOSPHATASE 63 U/L (46-116); BUN 10 mg/dl (9-23); CHLORIDE 103 mmol/L (98-107); CHOLESTEROL 163 mg/dL (<200); LDL CHOLESTEROL 62 mg/dL (9-159); POTASSIUM 4.5 mmol/L (3.4-5.1); SGPT/ALT 11 U/L (5-49); TRIGLYCERIDES 49 mg/dl (<150)
== END | disposition home or self-care (01) ==
LOC: LAB 10:12
PROVIDERS: ATTEND Physician Assistant Medical
DX: I10 Essential (primary) hypertension (principal); E10.65 Type 1 diabetes mellitus with hyperglycemia; E78.5 Hyperlipidemia, unspecified; Z79.4 Long term (current) use of insulin